=== PATIENT | female | born 1950 | race Caucasian/White ===

== ENCOUNTER 2023-10-02 11:22 | Inpatient (IN) | payer MEDICARE ==
[~2023-10-02] VITALS: Ht 175.3 cm; Wt 88.0 kg
[~2023-10-02 11:22] MED LIST: ADVAIR 500/28 DISKUS IH; NASONEX SPRAY NAS; PAXIL PO; TEGRETOL 2200 MG/TAB PO; VENTOLIN0.09 MG IH
[2023-10-02] MEDS ORDERED: Sennosides/Docusate 8.6-50 MG TAB PO PRN (15:45)
[2023-10-02] MEDS ORDERED: Polyethylene Glycol 3350 17 GM PDS PO PRN (15:45)
[2023-10-02] MEDS ORDERED: Docusate Sodium 100 MG CAP PO PRN (15:45)
[2023-10-02] MEDS ORDERED: Naloxone 0.4 MG/ML VIAL IV PRN (15:45)
[2023-10-02] MEDS ORDERED: Acetaminophen 325 MG TAB PO PRN (15:45)
[2023-10-02 15:55] VITALS: BP 127/79; PULSE 88; TEMP 98.1
[2023-10-02] MEDS ORDERED: TYLENOL 325MG325 MG PO (15:57)
[2023-10-02] MEDS ORDERED: DULCOLAX TAB5 MG PO (15:58)
[2023-10-02] MEDS ORDERED: [UNRECOGNIZED DRUG - OTHER] (15:59)
[2023-10-02] MEDS ORDERED: PEPCID 20MG TAB20 MG PO (16:00)
[2023-10-02] MEDS ORDERED: DEXAMETHASONE PO (16:00)
[2023-10-02] MEDS ORDERED: DESENEX TOP (16:01)
[2023-10-02] MEDS ORDERED: NICODERM C14 MG/PATC TD (16:02)
[2023-10-02] MEDS ORDERED: ZYPREXA ZYDIS5 MG PO (16:03)
[2023-10-02] MEDS ORDERED: ROXICODONE 55 MG/TAB PO (16:04)
[2023-10-02] MEDS ORDERED: ZOFRAN ODT4 MG PO (16:04)
[2023-10-02] MEDS ORDERED: MIRALAX PA17 GM/Dose PO (16:04)
[2023-10-02] MEDS ORDERED: ZESTRIL 20MG TA20 MG PO (16:05)
[2023-10-02] MEDS ORDERED: SENNA-S 50 MG-81 TAB PO (16:05)
[2023-10-02] MEDS ORDERED: TEGRETOL 2200 MG/TA1 PO (16:06)
[2023-10-02] MEDS ORDERED: PAXIL40 MG PO (16:07)
[2023-10-02] MEDS ORDERED: TOPROL XL 25MG25 MG PO (16:07)
[2023-10-02] MEDS ORDERED: oxyCODONE 5 MG TAB PO PRN (16:30)
[2023-10-02] MEDS ORDERED: OLANZapine 5 MG Orally-Disinteg TAB PO PRN (16:30)
[2023-10-02] MEDS ORDERED: Nicotine 14 MG DAILY PATCH TD PRN (16:45)
--- NOTE | 2023-10-02 17:15 | NUR ---
New patient arrived from [facility] via gurney & transportation staff member. Pt transferred to [facility] bed via slide board. Pt is AAO x 3 w/ mild expressive aphasia noted. She is s/p L. frontal & temporal craniectomy on 09/26. Pt has her cellphone & trash collector at the bedside. Bharti back placed in pt's closet at her request. Orientation provided to room & unit. Pt has her call light in reach. Bed alarm is on. Skin assessment: L scalp incision noted w/ CDI regulo. Pt has a single suture to top of head s/p drain removal. Coccyx is red w/ abraded skin. Coccyx redness is blanchable. Sacral dressing applied for pressure ulcer prophylaxis. 3-step incontinence supplies placed in room for future use. Per report, pt is continent of bowel & bladder. Waffle air overlay placed on bed & in recliner chair.
[2023-10-02 17:35] VITALS: BP 131/81; PULSE 84; TEMP 97.4
[2023-10-02 17:54] VITALS: BP_SYST 131
[2023-10-02 19:30] VITALS: BP_SYST 131
--- NOTE | 2023-10-02 19:30 | NUR ---
RECEIVED CHANGE OF SHIFT REPORT FROM DAY SHIFT NURSE. PATIENT RESTING IN BED, EXIT ALARM ON, CALL LIGHT IN REACH.
[2023-10-02] MEDS ORDERED: dexAMETHasone 1 MG TAB PO SCH (20:00)
[2023-10-02] MEDS ORDERED: Miconazole 2% Topical Powder BOTTLE TP SCH (21:00)
[2023-10-02] MEDS ORDERED: carBAMazepine 200 MG TAB PO SCH (21:00)
[2023-10-02] MEDS ORDERED: Sennosides/Docusate 8.6-50 MG TAB PO SCH (21:00)
[2023-10-02] MEDS ORDERED: Famotidine 20 MG TAB PO SCH (21:00)
--- NOTE | 2023-10-03 02:58 | NUR ---
PATIENT RESTING WITH EYES CLOSED, BREATHING EVEN AND NONLABORED. DOES NOT WAKE DURING NURSING ROUNDS. EXIT ALARM ON, CALL LIGHT IN REACH.
[2023-10-03 05:30] VITALS: BP 131/77; PULSE 83; TEMP 98.5
[2023-10-03 06:30] VITALS: BP_SYST 131
--- NOTE | 2023-10-03 07:09 | NUR ---
Change of shift report given to day shift nurseFridea.
[2023-10-03] MEDS ORDERED: Lisinopril 20 MG TAB PO SCH (09:00)
[2023-10-03] MEDS ORDERED: PARoxetine HCL 10 MG TABLET PO SCH (09:00)
--- NOTE | 2023-10-03 09:20 | NUR ---
PT RESTING IN BED WITH NO PAIN AT THIS TIME, A/O X4, SUTURE TO L SCALP WITH EDGES WELL APPROX AND NO SIGNS OF INFECTION. PT AMBULATED TO [facility] 2 ASSIST WITH WALKER AND UNSTEADY GAIT AND WEAKNESS. PT BECAME NAUSEOUS AND MEDICATION PROVIDED PER EMAR. MEPOLEX ON STAGE 1 SORE ON COCCYX. WILL CONTINUE TO MONTIOR.
--- NOTE | 2023-10-03 14:13 | NUR ---
Has lack of transportation kept you from medical appts, meetings, work, or from getting things needed for daily living? no How often do you feel lonely or isolated from those around you? rarely Over the past 5 days, how much of the time has pain made it hard for you to sleep? frequently Over the past 5 days, how often have you limited your participation in therapy due to pain? no therapy Over the past 5 days, how often have you limited your day-to-day activities because of pain? frequently Have you had 2 or more falls in the past year or any fall with an injury? yes Did you have major surgery during the 100 days prior to admission? yes
--- NOTE | 2023-10-03 16:56 | NUR ---
TERESE and SW student met with patient to welcome her to the IPR unit and complete an assessment. Patient reports she lives in [place] by herself. Patient reports she has two children, Florin and Daphne. Patient reports her best point of contact would be Iraida, her granddaughter, and that Paola (whom is listed on the chart) is also her daughter. Patient was unable to provide accurate phone numbers for any family members. Patient reports she was seeing Dr. Sullivan but believes she sees Dr. Love now. Pharmacy is [facility]. No issues affording medications. Patient does not know if she has a DPOA-HC. Patient reports she has a wheelchair but it is an older version, also has a shower chair and walker. Patient reports she was previously independent with ADLS and has a friend to transport to and from appointments. Patient reports she has no stairs at her home. Patient reports she is going to go home at time of discharge and has home health services in her area that she has worked with in the past. SW expressed the team will continue to evaluate and work with her and the social media community manager will work with her on a safe discharge plan. Patient reports she knows she will return home at time of discharge. TERESE will continue to monitor. TERESE received contact information for Florin P# [phone], Daphne P# [phone], Iraida P# [phone] Discharge plan: TBD
[2023-10-03 18:22] VITALS: BP 107/73; PULSE 87; TEMP 97.6
[2023-10-03 19:00] VITALS: BP_SYST 107
--- NOTE | 2023-10-03 20:00 | NUR ---
PT RESTING IN BED. A&O X4. FORGETFUL AT TIMES. MILD EXPRESSIVE APHASIA. VERY PLEASANT AND COOPERATIVE. PT ADMITS TO MILD H/A. DENIES NEEDS FOR TYLENOL. PT INCONTINENT IN BED. PLACED PUREWICK FOR THE NIGHT. REPOSITIONED. TAKES PILLS WHOLE WITH THICKENED SPRITE. NO SWALLOWING DIFFICULTIES. CALL LIGHT IN REACH. BED ALARM SET.
--- NOTE | 2023-10-04 04:47 | NUR ---
PT HAS SLEPT WELL THIS NIGHT. NO DISTRESS.
[2023-10-04 06:00] VITALS: BP 146/78; PULSE 79; TEMP 97.5
[2023-10-04 07:01] VITALS: BP_SYST 146
--- NOTE | 2023-10-04 07:02 | NUR ---
Shift report received from night RN. Pt sleeping supine in bed w/ HOB slightly elevated. No events reported overnight. Call light in reach. Bed alarm on.
--- NOTE | 2023-10-04 07:26 | NUR ---
Pt sleeping in bed. Aroused easily from sleep. Pt assisted to sitting position in bed to eat breakfast. She reports sleeping wel overnight. Denies pain at this time. L Scalp incision CDI & SECURITIES CONSULTANT. Suture to scalp CDI & SECURITIES CONSULTANT. Pt denies other needs at this time. Eating breakfast independently. Call light in reach. Bed alarm on.
--- NOTE | 2023-10-04 11:20 | NUR ---
Pt up to toilet w/ PT & OT. Pt tearful & not wanting to participate w/ therapies this morning. Pt reporting pain & nausea. Zofran given per PRN order. Oxycodone pulled from Pyxis - pt declined. Tylenol pulled from Pyxis - pt declined. OT & PT at the bedside to continue to attempt to work w/ pt. Radiology notified of hip XR order.
--- NOTE | 2023-10-04 12:51 | NUR ---
Pt sitting up in recliner eating lunch independently. Son & [id number] at the bedside. Pt denies pain/discomfort. Denies any needs. Call light in reach. Chair alarm on.
--- NOTE | 2023-10-04 13:28 | NUR ---
Pt up to ambulate from bed to bathroom using CGA w/ FWW. Pt had a continent void. Pt back in bed to wait for OT. Pt denies any needs at this time. Call light in reach. Bed alarm on.
--- NOTE | 2023-10-04 16:34 | NUR ---
material worker met with patient to briefly check in on how therapy has been going. Patient stated therapy has been a lot for her and is worried about being able to continue the three hours. SW provided Medicare.gov list of SNF options. Patient reports at this time she wants to continue IPR services. Mayela IPR director and Dr. Huston have been notified. Discharge date: TBD - re-evaluate next week Discharge plan: TBD
[2023-10-04 17:55] VITALS: BP 123/76; PULSE 86; TEMP 97.6
--- NOTE | 2023-10-04 18:55 | NUR ---
Pt sitting up in bed watching tv after eating dinner independently. Scalp sutures SUPPLY AND DISTRIBUTION MANAGER & CDI. Pt denies the need for pain medication at this time. Call light in her reach. Bed alarm is on.
[2023-10-04 19:30] VITALS: BP_SYST 123
--- NOTE | 2023-10-04 20:46 | NUR ---
Patient assessed at this time, see shift assessment, denies pain or discomfort, refused desenex powder and venelex ointment, states "will do that in the morning", incontinence of urine at this time, pad changed, pericare provided, sutures intact to left lateral head, denies further needs, call light and personal items within reach, will continue to monitor.
[2023-10-05 06:12] VITALS: BP 140/77; PULSE 86; TEMP 98
[2023-10-05 07:05] VITALS: BP_SYST 140
--- NOTE | 2023-10-05 09:09 | NUR ---
PT RESTING IN BED WITH NO PAIN AT THIS TIME. PT A/OX4, TOLERATED BREAKFAST WELL. PT EDUCATED ON IMPORTANCE OF GETTING UP TO THE BATHROOM. PT CONTINUES TO WET THE BED ALTHOUGH CONTINENT. SCDS APPLIED. NO NEEDS AT THIS TIME. WILL CONTINUE TO MONTIOR.
[2023-10-05 17:34] VITALS: BP 134/87; PULSE 95; TEMP 98.1
[2023-10-05 19:00] VITALS: BP_SYST 134
[2023-10-06 05:59] VITALS: BP 116/63; PULSE 79; TEMP 97.4
[2023-10-06 06:56] VITALS: BP_SYST 116
--- NOTE | 2023-10-06 09:00 | NUR ---
PT RESTING IN BED WTIH NO PAIN 2/10 AT THIS TIME. PT A/O X4, 1 ASISST TO COMMOD WITH WALKER. PT NOTES ANXIETY AND HAS QUESTIONS FOR DR REGARDING FUTURE CARE. PT EMOTIONAL AND EXPRESSING THAT SHE "DOES NOT WANT TO BE PUSHED TO WALK OR DO THESE EXERCISES ANYMORE". DR ORDOÑEZ NOTIFIED. WILL CONTINUE TO [facility].
--- NOTE | 2023-10-06 16:14 | NUR ---
grove worker was informed by Dr. Abdullahi Andrews that patient would like to discuss her options as patient is not tolerating the intensive therapies. SW and Dr. Andrews spoke with patient who reports it is too much. Pt states she would like to return home and has two neighbors who can check on her or live with her whe clarified. She reports she cannot do the "excessive exercise." SW provided the Medicare.gov list of SNF options in her area. She would like to discuss wiht family tomorrow and inform SW. She inquired about Home Health and reports patient would not be safe to return home with HH if she does not have 24/7 care from someone. Pt verbalized understanding and will discuss her wishes with her family. HELIO Malave informed SW that patient is upset her family is not here to discuss today. Frieda spoke with the family and advised they will arrive today to discuss. TERESE informed RN that patient's son lives in [facility] and daughter in [place] typically. Discharge Plan: tbd
[2023-10-06 17:28] VITALS: BP 140/81; PULSE 90; TEMP 97.7
--- NOTE | 2023-10-06 17:29 | NUR ---
TOOK OVER PATIENT CARE, NO CHANGES FROM PREVIOUS ASSESSMENT. RFECIEVED REPORT FROM KIMBERLY Schaefer RN.
[2023-10-06 19:00] VITALS: BP_SYST 140
--- NOTE | 2023-10-06 20:07 | NUR ---
RECEIVED CHANGE OF SHIFT REPORT FROM DAY SHIFT NURSE. PATIENT RESTING IN BED, EXIT ALARM ON, CALL LIGHT IN REACH.
--- NOTE | 2023-10-06 20:13 | NUR ---
REQUESTED AND GIVEN TYLENOL FOR GENERALIZED DISCOMFORT/BODY ACHES AT THIS TIME. NO OTHER NEEDS REPORTED.
[2023-10-07 05:15] VITALS: BP 162/87; PULSE 80; TEMP 97.5
--- NOTE | 2023-10-07 06:50 | NUR ---
CHANGE OF SHIFT REPORT GIVEN TO DAY SHIFT NURSEJOSE.
--- NOTE | 2023-10-07 06:50 | NUR ---
CHANGE OF SHIFT REPORT GIVEN TO DAY SHIFT NURSEJOSE.
[2023-10-07 06:58] VITALS: BP_SYST 162
--- NOTE | 2023-10-07 06:58 | NUR ---
Shift report received from night RN. Pt sleeing supine in bed. Resps even, unlabored. No events reported overnight. Call light in reach. Bed alarm on.
--- NOTE | 2023-10-07 09:03 | NUR ---
Pt stting up in bed watching tv. Pt denies pain/discomfort this morning. Denies any needs. Therapies remain on Medical Hold per hospitalist. Pt has her call light in reach. Bed alarm is on.
--- NOTE | 2023-10-07 10:51 | NUR ---
Pt off unit w/ PT. Zofran given for nausea
--- NOTE | 2023-10-07 11:05 | NUR ---
Voicemail left with Cotton Marcelo Neurosurg RN re: scalp suture removal. Callback received. May remove sutures on Saturday. Dr. Huston aware.
--- NOTE | 2023-10-07 13:09 | NUR ---
Pt off unit w/ PT
--- NOTE | 2023-10-07 13:12 | NUR ---
Social Work student Kayla sent SNF referral to [facility].
--- NOTE | 2023-10-07 14:57 | NUR ---
Pt sitting up in bed watching tv. She denies the need for pain medication at this time. Denies nausea or abd pain. Sacral dressing changed. Skin beneath dressing was previously red, blanchable, abraded. Wounds healing. Skin is no longer reddened. Pt denies any other needs at this time. Call light in her reach. Bed alarm on.
--- NOTE | 2023-10-07 15:07 | NUR ---
child welfare worker spoke with IPR Director Mayela who requests a family meeting tomorrow to discuss patient's discharge needs. SW called granddaughter, Iraida who reports she would be unable to attend at 9:30am due to working. She provided her father, Florin' [phone] to discuss as she stated they chose [facility]. TERESE called Florin who expressed some hesitancy about meeting as "we already discussed" he states. SW added that this would be with the whole rehab team, director, , and SW. Florin was agreeable to coming in person at 9:30am. SW informed IPR Director Mayela and passed on knowledge of patient wanting [facility] per family. Discharge Plan: tbd, family meeting 9:30am 10/08
--- NOTE | 2023-10-07 15:37 | NUR ---
Admission QIM scores were reviewed by the team. Code of 1 chosen for toileting hygiene was determined by team discussion to be the most usual performance for this patient during the discharge assessment period. Code of 2 chosen for rolling left to right was determined by team discussion to be the most usual performance before interventions for this patient during the assessment period. Code of 2 chosen for sit to lying was determined by team discussion to be the most usual performance before interventions for this patient during the assessment period. Code of 2 chosen for lying to sitting side of bed was determined by team discussion to be the most usual performance before interventions for this patient during the assessment period. Code of 2 chosen for sit to stand was determined by team discussion to be the most usual performance for this patient during the discharge assessment period. Code of 2 chosen for chair/bed to chair transfer was determined by team discussion to be the most usual performance before interventions for this patient during the assessment period. Code of 1 chosen for walking 10 feet was determined by team discussion to be the most usual performance for this patient during the discharge assessment period.--Mayela Payton, PD
[2023-10-07 16:50] VITALS: BP 125/66; PULSE 91; TEMP 97.8
--- NOTE | 2023-10-07 17:40 | NUR ---
Pt sitting up in bed watching tv after eating approx 70% of dinner independently. Pt denies pain/discomfort. Denies any needs. Call light in her reach. Bed alarm is on.
--- NOTE | 2023-10-07 18:26 | NUR ---
Pt up to the bathroom x 1 assist for pivot transfer to wheelchair then toilet. Pt back in bed after toileting. Pt tearful stating "why won't my legs work?" Encouraged pt to continue w/ PT/OT for strengthening. Pt reporting bilat hip pain but is refusing Tylenol or Oxycodone when offered. Will continue to monitor & pass on to oncoming RN. Pt has her call light in reach. Bed alarm is on.
[2023-10-07 19:16] VITALS: BP_SYST 125
--- NOTE | 2023-10-07 19:16 | NUR ---
RECEIVED CHANGE OF SHIFT REPORT FROM DAY SHIFT NURSE. PATIENT RESTING IN BED, CALL LIGHT IN REACH. NO NEEDS REPORTED AT THIS TIME.
--- NOTE | 2023-10-07 20:11 | NUR ---
REQUESTED AND GIVEN TYLENOL, SEE MAR. REFUSED SCD FOR THE NIGHT, REPORTS SCD ARE TOLERATEABLE DURING THE DAY. EXIT ALARM ON, CALL LIGHT IN REACH.
--- NOTE | 2023-10-08 02:30 | NUR ---
PATIENT RESTING IN BED, EYES CLOSED, BREATHING EVEN AND NONLABORED. EXIT ALARM ON, CALL LIGHT IN REACH. PATIENT DID NOT WAKE DURING NURSING ROUNDS.
[2023-10-08 05:03] VITALS: BP 147/72; PULSE 77; TEMP 97.4
--- NOTE | 2023-10-08 06:48 | NUR ---
Change of shift report given to day shift nurseFrieda.
[2023-10-08 07:04] VITALS: BP_SYST 147
--- NOTE | 2023-10-08 09:05 | NUR ---
PT RESTING IN BED WITH NO PAIN AT THIS TIME. PT A/OX4, MEPLOEX TO COCCYX CLEAN, DRY, AND INTACT. FAMILY AT BEDSIDE. WILL CONTINUE TO MONITOR.
--- NOTE | 2023-10-08 14:17 | NUR ---
track worker recieved an email from Margy Phillips at [facility] who reports they decline patient. She reports concerns if patient is declining therapy in [facility] for 3 hours and then do 2-3 hours per day in Swing Bed program. Discharge Plan: SNF
--- NOTE | 2023-10-08 15:04 | NUR ---
line out worker attended family meeting for patient with rehab team. Dr. Huston, IPR Director, and son, Florin at bedside. The team expressed patient's medical status, prognosis, and suggestions for a lower level of rehab and cares due to increased pain/nausea with intense movements. SW provided further information on a SNF and how this could meet her needs. Florin and pt were agreeable to a SNF, as long as it is not [facility] in [place]. Florin reports he will speak with [facility] to obtain the results that will help them deicde on chemo vs radiation as treatments. Dr. Huston discussed the possibilty of pt getting injections in her hips to help alleviate some pain. Pt was open to exploring this option. TERESE spoke with Christiano at [facility] to provide information obtained from the family meeting. Christiano reports they will decline patient due to being unable to meet her needs and being a small facility. TERESE spoke with son, Florin and informed him of the denial. He reports he is fine with any other facility as long as it is not [facility]. He states [facility] in [place] and [facility] would be his next options from the Medicare.gov list. He had concerns regarding finding pt placement and states that if he has to take her back to [place] if he has to to avoid [facility]. TERESE reassured son that they can obtain a placment, but it can be more difficult in the smaller towns who cannot meet her needs. TERESE faxed referrals to [facility], [facility], and [facility]. TERESE recieved an email from [facility] reporting that they cannot accept pt due to them being a Swing Bed program and they provide 2-3 hours a day of therapy as well and if pt can already not tolerate IPR, they have concerns. TERESE left a voicemail to [facility] to ensure they recieved the referral. [facility] reports they have recieved it. Discharge Plan: SNF tbd
--- NOTE | 2023-10-08 15:42 | NUR ---
sand control worker recieved a call from TERESE Mane at [facility] wanting to inquire about patient's needs and agressive vs hospice decisions. TERESE advised pt and son would like to continue to be agressive, but pt needs rehab to be stronger before that can occur. TERESE advised pt would like to return home eventually, but at this time, the team feels as though the pt needs more rehab before doing so and IPR is too intense for her. She advised that [facility] is short on female beds and are trying to assess the complexity of pt and concerns regarding Medicare being the only payor source. TERESE advised that pt is pleasant and wants to continue to fight and she has suportive family. Alhaji requests updates during the week and will continue to review with staff.
[2023-10-08 18:02] VITALS: BP 120/72; PULSE 90; TEMP 98.1
[2023-10-08 19:12] VITALS: BP_SYST 120
--- NOTE | 2023-10-08 19:12 | NUR ---
RECEIVED CHANGE OF SHIFT REPORT FROM DAY SHIFT NURSE, EXIT ALARM ON, CALL LIGHT IN REACH. PATIENT STATING SHE WANTED HER PILLS GIVEN EARLIER TONIGHT.
--- NOTE | 2023-10-08 20:14 | NUR ---
TOOK ONLY 325 OF TYLENOL, REFUSED ADDITIONAL 325 MG TABLET. PATIENT REFUSED STOOL SOFTENER STATING THAT IT IS MAKING HER CONSTIPATION "WORSE" AND REFUSED FAMOTADINE.
[2023-10-09 06:03] VITALS: BP 125/71; PULSE 79; TEMP 97.5
--- NOTE | 2023-10-09 06:50 | NUR ---
awake resting in bed, bedside shift report received from HELIO Ulloa
--- NOTE | 2023-10-09 06:53 | NUR ---
Change of shift report given to day shift nurseZoe. Patient resting in bed, exit alarm on, call light in reach.
[2023-10-09 06:54] VITALS: BP_SYST 127
--- NOTE | 2023-10-09 07:40 | NUR ---
sitting up in bed and had breakfast and tolerated well, full assessment completed, see intervention for further info,
--- NOTE | 2023-10-09 08:35 | NUR ---
speech therapy in to work with patient
--- NOTE | 2023-10-09 10:30 | NUR ---
returned from radiology per without having injections, was not able to have them since she has an allergy to lidocaine and she didn't want the injections without that, occupational therapy and physical therapy in to work with patient
[2023-10-09 11:09] LABS: BASO # 0.1 K/mm3 (0.0-0.2); BASO % 0.5 % (0.0-2.0); EOS # 0.1 K/mm3 (0.0-0.7); EOS % 0.9 % (0.0-4.0); GRAN # 7.1 K/mm3 (1.4-6.5); GRAN % 70.4 % (42.2-75.2); HEMOGLOBIN 10.9 g/dl (12.5-16.0); LYMPH # 1.9 K/mm3 (1.2-3.4); LYMPH % 18.6 % (20.0-51.0); MEAN CELL VOLUME 101 fl (80.0-100.0); MEAN CORPUSCULAR HEMOGLOBIN 34 pg (27-31); MEAN CORPUSCULAR HGB CONC 34 g/dl (33.0-37.0); MEAN PLATELET VOLUME 11.7 fl (7.4-10.4); MONO # 0.9 K/mm3 (0.1-0.6); PLATELET COUNT 251 K/mm3 (130-400); RED BLOOD COUNT 3.22 M/mm3 (4.10-5.30)
[2023-10-09 11:14] LABS: HEMATOCRIT 32.4 % (37.0-47.0)
--- NOTE | 2023-10-09 11:16 | NUR ---
occupational therapy in working with patient, patient is c/o paina nd medicated with tylenol 325mg, offeed 2 t ylenol but she declines 2 and only rquest 1
[2023-10-09 11:25] LABS: CALCIUM 10.2 mg/dL (8.4-10.2); CREATININE, serum 0.67 mg/dL (0.57-1.11); POTASSIUM 4.3 mmol/L (3.5-4.5)
--- NOTE | 2023-10-09 12:00 | NUR ---
up in chair having lunch
--- NOTE | 2023-10-09 13:17 | NUR ---
physical therapy in to work with patient
--- NOTE | 2023-10-09 13:49 | NUR ---
awake resting in bed with eyes closed
--- NOTE | 2023-10-09 16:23 | NUR ---
workers compensation defense attorney attended team conference regarding pt with rehab team, IPR Director, Dr. Huston, and Supervisor Wound. Pt will be transferring to a SNF at this time for a lower level of care. Patient is noted to have a wheelchair already from family meeting. TERESE met with pt and provided team conference notes and briefly explained them. Pt verbalized understanding and expressed frustrations that she wants to speak with her grand-daughter, Iraida. TERESE assisted her with calling Iraida. TERESE spoke with Iraida and discussed SNF decision and locations. TERESE provided she sent to [facility] and [facility] and they denied pt. She was agreeable to [facility], [facility], and [facility]. She expressed she would like to stay in the [facility] area. SW inquired about a DPOA-HC and she states she is looking for it in pt's old house, but she does not believe pt has one. She confirms with TERESE that NOK is Florin and [facility]. She states that D[facility] is not reponsive and does not answer calls from them either. TERESE discussed questions she was getting from [facility] regarding potential for LTC and payor source. TERESE discussed a Medicaid application in the event pt stays longer than 21 days. Iraida confirms they cannot afford to private pay any amount for SNF or LTC. TERESE suggested a Medicaid application to assist. Iraida verbalized understanding and asked TERESE to call Florin. TERESE called Florin and relayed the above information. He had many questions regarding prognosis, length of stay, and discharge planning. TERESE advised she cannot state how long or what pt's discharge plan at the end will look like; but she will need to start with SNF to see if she can get stronger or near baseline because returning home is not safe at this time. TERESE discussed the Medicaid application and son reports he would like to make some phone calls. He confirms they cannot afford to private pay any amount and neither can pt. Florin states he was getting a call from his sister and will get back to TERESE on this. He expressed frustrations regarding payor source. TERESE spoke with TERESE Mane at [facility] whom declines pt at this time for being unable to meet her needs. TERESE faxed a referral to [facility] and called to leave TERESE rachel for follow up. TERESE left a voicemail and faxed updates to [facility]. Discharge Plan: SNF tbd
--- NOTE | 2023-10-09 17:22 | NUR ---
ressting in bed, has had supper
[2023-10-09 17:32] VITALS: BP 142/82; PULSE 92; TEMP 97.7
--- NOTE | 2023-10-09 18:53 | NUR ---
bedside shift report given to HELIO Monique
[2023-10-09 19:00] VITALS: BP_SYST 142
--- NOTE | 2023-10-09 19:00 | NUR ---
Bedside shift report received from HELIO Enriquez. Patient sitting in bed with no c/o at this time.
--- NOTE | 2023-10-09 20:00 | NUR ---
Patient hollering out to desk-this nurse to room at this time. When asked if patient needed something states "well yes, I have been waiting to go to bathroom for three hours." This nurse and dayshift nurse did bedside report at 1900 and patient denied needs. Assisted up to commode with two assist at this time. Patient already incontinent of urine. Alba care provided. Assessment commplete. A&Ox4 but is very forgetful. HS meds given. Plan of care discussed for this shift to include meds/calling for questions/concerns. Verbalizes understanding. Call light in reach. Will monitor.
--- NOTE | 2023-10-10 00:56 | NUR ---
Patient sitting up in bed. Has called out several times this shift asking for schedule for AM and if any meetings are planned. Called out stating "something is not right with me, my memory isnt right." VS taken and WNL. Patient states "I just feel off and confused." Updated on AM plan for therapy. Verbalizes understanding. Denies any other questions/concerns. Call light in reach. Will monitor.
[2023-10-10 05:32] VITALS: BP 139/80; PULSE 84; TEMP 97.3
--- NOTE | 2023-10-10 05:43 | NUR ---
Patient was up most of shift. Yelled out for staff several times. Seemed very anxious and was worried about todays plans. Seemed confused off and on. Denied pain/nausea/shortness of breath. VS remained stable. Currently resting in bed with eyes closed. Call light in reach. Will monitor.
[2023-10-10 07:07] VITALS: BP_SYST 139
--- NOTE | 2023-10-10 07:08 | NUR ---
Shift report received from night RN. Pt awake & lying supine in bed w/ HOB elevated to approx 30 degrees. Per shift report & pt report, pt did not sleep well overnight. Pt would like to discuss her XR result w/ Dr. Huston this morning. Will pass on to upon arrival. Pt denies pain at this time but reports having increased L hip pain overnight. Denies the need for pain medication. Call light in reach. Fall precautions in place.
--- NOTE | 2023-10-10 07:48 | NUR ---
Pt sitting up in bed eating breakfast independently. Pt refusing several medications this mornin. Pt agreeable to taking Paxil 20mg now instead of rx of 40mg. She is reporting night time anxiety & would like to take to the remaining 20mg at HS. 2. Lisinopril 20 mg refused at this time - pt would like to space out BP meds (take Metoprolol & Lisinopril QAM). 3. Pepcid 20mg refused 4. Senna refused. Will discuss w/ Dr. Huston upon arrival. Pt denies other needs. Call light in reach. Fall precautions in place.
--- NOTE | 2023-10-10 09:11 | NUR ---
Pt up to toilet. Reporting nausea. Nicolean offered & declined. Pt given Sprite.
--- NOTE | 2023-10-10 10:23 | NUR ---
Pt reporting pain "all over". Pt agreeable to taking Tylenol 325 mg - 1 tab given. Sutures removed by Dr. Huston. Incision well approximated w/o redness, drainage. Pt off unit for Group Therapy.
--- NOTE | 2023-10-10 10:52 | NUR ---
Pt back in room from Group Therapy. Pt c/o pain & nausea. Pt declines any more Tylenol & delcines Zofran. Pt assisted to bed. HOB elevated to 45 degrees. Cranberry juice given at her request. Other needs denied. Call light in reach. Fall precautions in place.
--- NOTE | 2023-10-10 13:08 | NUR ---
Pt sleeping supine in bed. HOB elevated to approx 45 degrees. Resps are even & unlabored. Call light in reach. Fall precautions in place.
--- NOTE | 2023-10-10 15:58 | NUR ---
reinforced ironworker called pt's son, Florin to follow up on if he was willing to work with financial advisors to complete the Medicaid application. Florin reports he was headed to the bank today to assess financials and see if he can get documents from the bank. He reports, "There is no way we can afford it. I spoke to [place] and they are $5,000 a month." TERESE advised that [facility] declined patient so this would not be an option. TERESE stated she spoke with G[facility] Jeffery and they are reviewing, but questioned payor source after day 21 of medicare paying. He then became agreeable to meeting with personal financial planner tomorrow at 2pm. SW discussed options if the main and nearby facilities did not accept. He reports, "I only want as far as [place]- not [place] or further." TERESE discussed that if there are not local acccepting facilities, the next step is to send referrals out further. He did not reply to this statement. TERESE advised she will call financial and inform them to meet with him and pt tomorrow. TERESE asked if she could send to local facilities in the [place] area: [facility] and [facility]. Florin was agreeable to this. TERESE emailed referrals to [facility], [facility], and [facility]. TERESE spoke with Paola, Circulation Supervisor to complete Medicaid application. She later spoke with pt's son who wanted to complete it today around 2pm as he found him or his daughter, Iraida was not on pt's bank to release documents. Paola advised son will need a notary to assist with getting permission written from pt. TERESE provided hospital notary information to Paola. TERESE recieved a call from HELIO Houser that sonFlorin is in the building. TERESE called Florin who requested SW come to the room to discuss planning. TERESE met with pt, son, and grand-daughter Iraida in room. TERESE provided an update that facilities are requesting a secondary payor source: Medicaid. He was agreeable to doing this and pt verbalized understanding what it was needed for. TERESE inquired about if pt would be open to completing a DPOA-HC. All parties agreed to this. TERESE completed this with pt who listed Iraida as primary and Florin as secondary. Circulation Supervisor Paola and TERESE witness signatures, provided copies/originals, and placed copy in chart. TERESE stated that [facility] provided they wanted a DPOA-HC and [facility] was still reviewing. Gerson Jeffery and Jered report their staff is still reviewing too. TERESE advised the Circulation Supervisor is able to work with them on the Medicaid application. No further questions or concerns for TERESE. TERESE called [facility] who states their DON is out and other team members are reviewing. Gerson Jeffery informs SW they are still reviewing. Jenae states that clinically they can meet pt's needs, but their finance team is still reviewing her insurance and being Medicaid pending. TERESE spoke with Elgin at [facility] who requests a DPOA-HC. TERESE advised this was now completed and emailed to him. He reports he will have to ask about Medicaid pending, but clinically they can meet needs. Patient is now Medicaid pending. Discharge Plan: SNF tbd
[2023-10-10 16:09] LABS: COLLECTION METHOD CLEAN CATCH
[2023-10-10 16:18] LABS: PH 5.5 (5.0-8.5); URINE APPEARANCE CLEAR (CLEAR/HAZY); URINE BLOOD NEGATIVE (NEGATIVE); URINE COLOR Dark Yellow (YELLOW); URINE GLUCOSE NEGATIVE (NEGATIVE); URINE KETONE NEGATIVE (NEGATIVE); URINE NITRATE NEGATIVE (NEGATIVE); URINE PROTEIN(semi-quant) NEGATIVE (NEGATIVE)
[2023-10-10 17:17] VITALS: BP 107/77; PULSE 82; TEMP 97.8
--- NOTE | 2023-10-10 17:35 | NUR ---
Pt sitting up in bed eating dinner w/ son & granddaughter. Scalp incision remains well approximated. No drainage or redness. Pt denies pain/discomfort at this time. Other needs denied. Call light in reach. Bed alarm on.
--- NOTE | 2023-10-10 20:00 | NUR ---
PT NEEDING UP TO BSC. HAD MED SF BM. PT CONFUSED AT THIS TIME. PT WANTS BACK INTO BED THEN SHE REFUSES. "I DON'T KNOW WHAT GOING ON." PT ANXIOUS AND WON'T FOLLOW DIRECTIONS. 2:1 ASSIST TO STAND. PT WONT UNCROSS FEET. THEN HOLLERS I NEED TO SIT. BUT THEN SHE ASK IF WE WILL HELP HER GET INTO BED. PT ASSISTED TO BED. ALL SETTLED, THE BECOMES FRANTIC AGAIN i NEED UP. I HAVE TO POOP. PT TRYING TO GET UP BYHERSELF. ENC PT TO WAIT UNTILL BSC AND STAFF DONNED GLOVES. PT HOLLERING I HAVE TO GO. 2:1 MAX ASSIST TO BSC. PT HAD XLG SL LOOSE BM. PT AGAIN WANTS BACK INTO BED THEN REFUSES TO ASSIST STAFF TO A STANDING POSITION. PT KEEPS LEGS CROSSED. PT SAID i CAN'T. VERY UNCOOPERATIVE. FINALLY WAS ABLE TO GET PT BACK INTO BED. SEE MAR FOR ZYPREXA GIVEN. PT TOOK ALL SCHEDULED MEDS TONIGHT. CALL LIGHT IN REACH. BED ALARM SET.
[2023-10-11 06:07] VITALS: BP 100/66; PULSE 84; TEMP 98
[2023-10-11 07:00] VITALS: BP_SYST 100
[2023-10-11 18:09] VITALS: BP 119/71; PULSE 93; TEMP 97.6
[2023-10-11 19:00] VITALS: BP_SYST 119
--- NOTE | 2023-10-11 19:43 | NUR ---
RECIEVED REPORT FROM HELIO LABOY.
--- NOTE | 2023-10-11 20:18 | NUR ---
PT ALERT AND ORIENTED TO SELF AND PLACE. FORGETFUL WITH HALLUCINATIONS, ASKED WHY SHE WASNT IN HER BED, WHILE LAYING IN BED. PAIN RATED 4/10, MEDICATED PER EMAR. ASSESSED VSS. NO FURTHER NEEDS AT THIS TIME. BED ALARM SET,CALL LIGHT WITHIN REACH.
[2023-10-12 05:48] VITALS: BP 128/82; PULSE 100; TEMP 98.1
[2023-10-12 07:02] VITALS: BP_SYST 128
--- NOTE | 2023-10-12 07:03 | NUR ---
Shift report received from night RN. No events reported overnight. Pt sleeping supine in bed w/ even & unlabored. Scalp incision [employer] & well approximated. Call light in reach. Fall precautions in place.
--- NOTE | 2023-10-12 09:19 | NUR ---
Pt sitting up in bed after eating breakfast. Group Therapy declined. Pt denies any needs at this time. Call light in reach. Bed alarm on.
--- NOTE | 2023-10-12 12:17 | NUR ---
Pt sitting up in bed after eating lunch independently. Pt ate approx 10% of her lunch. She states she isn't feeling hungry right now & may eat the rest of her tray later. Pain/discomfort denied. Other needs denied. Scalp incision remains CDI. Call light in reach. Fall precautions in place.
[2023-10-12 17:05] VITALS: BP 145/73; PULSE 87; TEMP 98
--- NOTE | 2023-10-12 17:48 | NUR ---
Son (DPOA) & grand daughter here to visit pt. KATHARINE requesting that nursing give her daughter, Daphne, minimum information when she calls for updates on her mom. DPOA stated that Daphne calls & "upsets mom". Will pass on to oncoming shift.
[2023-10-12 18:30] VITALS: BP_SYST 145
--- NOTE | 2023-10-12 19:27 | NUR ---
PT CONFUSED. WANTS THE [place] [facility] [employer]. PT KNOW MONTH AND YEAR. DOESN'T KMOW SHE IS IN THE HOSPITAL OR WHAT TOWN.
--- NOTE | 2023-10-12 20:30 | NUR ---
PT URGENTLY STARTED GETTING UP. NEEDED BM. PT HAVING DIFFICULTY FOLLOWING DIRECTION FOR SAFETY. 2:1 PIVOT TRANSFER. KEEPS FEET CROSSED. WOULD NOT USE WALKER. PT GETTING ARGUMENTATIVE. PT HAD LARGE LOOSE MORALES BROWN BM. PT C/O LT HIP PAIN. SEE MAR FOR ZYPREXA AND TYLENOL. MAX 2:1 TRNASFER BACK TO BED. CALL LIGHT IN REACH. BED ALARM SET.
[2023-10-13 05:18] VITALS: BP 140/62; PULSE 70; TEMP 97.5
--- NOTE | 2023-10-13 05:25 | NUR ---
PT AWAKE THIS AM. MORE ORIENTED. NO NEEDS AT THIS TIME.
[2023-10-13 07:12] VITALS: BP_SYST 140
--- NOTE | 2023-10-13 07:14 | NUR ---
Shift report received from night RN. No events reported overnight. Pt sleeping supine in bed w/ even & unlabored resps. Call light in reach. Bed alarm on.
--- NOTE | 2023-10-13 08:06 | NUR ---
Pt sitting up in bed after eating breakfast. Pt ate approx 40% of breakfast independently. Pt reporting that her L hip & knee are "hurting really bad" since yesterday evening. Pt declining offered pain medication at this time. Warm blanket given. Pt refusing scheduled famotidine stating "it's too many pills in the morning". Other needs denied. Call light in reach. Fall precautions in place.
--- NOTE | 2023-10-13 09:42 | NUR ---
Pt sleeping supine in bed. HOB elevated to approx 30 degrees. Resps even & unlabored. Call light in reach. Bed alarm on.
--- NOTE | 2023-10-13 10:28 | NUR ---
Pt up to BSC then back to bed. Pt declined sitting in wheelchair or recliner. Pt denies the need for pain medication at this time. Denies other needs. Call light in reach. Bed alarm on.
--- NOTE | 2023-10-13 15:35 | NUR ---
Pt sitting up in bed watching tv. Denies any needs at this time. Call light in reach. Bed alarm on.
[2023-10-13 17:06] VITALS: BP 122/77; PULSE 92; TEMP 97.7
--- NOTE | 2023-10-13 17:38 | NUR ---
Pt sitting up bed watching tv. Dinner tray declined except for ice cream. Tylenol given by rn charge for incisional pain at pt's request. Other needs denied. Call light in reach. Bed alarm on.
[2023-10-13 19:00] VITALS: BP_SYST 122
--- NOTE | 2023-10-13 20:30 | NUR ---
UPON SHIFT ASSESSMENT, IVET WAS AWAKE IN BED AND AXO X4. SHE IS CHEERFUL AND NEUROS ARE WNL. LT FRONTAL AND TEMPORAL INSICION IS OPEN TO AIR AND WOUND EDGES APPROXIMATE-NO EDEMA, NO DRAINAGE. SHE DENIES ANY PAIN OR SOA AT THIS TIME AND STATES NO NEEDS. CALL LIGHT WITHIN REACH, BED ALARM ON.
[2023-10-14 05:35] VITALS: BP 140/83; PULSE 87; TEMP 97.3
--- NOTE | 2023-10-14 06:15 | NUR ---
THROUGHOUT THE NIGHT, LESVIA HAD THREE WET BED CHANGES AND MEPIPLEX WAS PLACED ON SACRUM D/T DISCOLORATION-BLANCHABLE. NEUROS ARE WNL AND SHE WAS ABLE TO SLEEP FOR ABOUT 4 HRS. VS ARE STABLE AND SHE DENIES ANY NEEDS AT THIS TIME.
[2023-10-14 06:46] VITALS: BP_SYST 140
--- NOTE | 2023-10-14 06:47 | NUR ---
Shift report received from night RN. Pt sleeping supine w/ even & unlabored resps. HOB elevated to approx 30 degrees. No events reported overnight. Call light in reach. Fall precautions in place.
--- NOTE | 2023-10-14 10:24 | NUR ---
Pt up to shower w/ OT. All skin intact. Pt in hallway w/ PT to self-propel in w/c
--- NOTE | 2023-10-14 12:03 | NUR ---
Pt sitting up in bed eating lunch independently. Denies any needs at this time. Denies pain. Call light in reach. Bed alarm on.
--- NOTE | 2023-10-14 14:23 | NUR ---
scrap yard worker met with patient to check in and assess if she has any needs from TERESE. Pt requests an update. SW provided that they are still aiming for SNF placement, but she has not recieved an approval from a facility yet. SW advised she has been speaking with son, Florin and giving him updates too. Pt verbalized understanding. Pt went on to tell a story about how she left on Saturday and was at a bus stop, by a gas station, then trying to get to the police station and had no phone. SW inquired about the cell phone in the room. Pt reports no knowledge of this. SW informed pt it was her phone and attempted to re-orient her to being in the hospital for almost two weeks. Pt did not respond to this. She continued on to say she left, came back, and is unsure how she got back to the hosptial. Pt expressed no further needs to SW. TERESE spoke with [facility], [facility], and [facility] who report they are still reviewing patient. [facility] and [facility] requested the Medicaid application. TERESE worked with financial service rep Paola to obtain this. TERESE emailed to both parties requesting. Jenae requested three months of bank statements regarding patient's income to further assess Medicaid eligibilty. TERESE spoke with Gilda at [facility] who reports concerns regarding if patient's stay turned to LTC. They report to not have enough staff to transport patient to/from chemo/cancer appointments if they is pursued. SW provided they have recieved no plan from oncology regarding treatment for pt. [facility] reports they will continue to discuss. TERESE spoke with son, Florin and provided an update. TERESE informed him of needing bank statements and concerns regarding transportation to/from chemo appointments. Florin reports he will talk further with Iraida, but he believes she would be agreeable to taking patient to appointments if this is an issue. He informed SW they could even have a back up. He reports he will call SW once he can discuss this further. He will work on obtaining bank statements for SW to send. TERESE emailed DPOA-HC to Paola with financial advising for her processes. Discharge Plan: tbd, SNF
--- NOTE | 2023-10-14 15:18 | NUR ---
Pt sleeping supine in bed w/ even & unlabored resps. Call light in reach. Bed alarm on.
--- NOTE | 2023-10-14 16:19 | NUR ---
Pt awake & sitting up in bed. Denies pain/discomfort. Denies other needs. Call light in reach. Bed alarm on.
[2023-10-14 17:02] VITALS: BP 128/88; PULSE 84; TEMP 97.6
[2023-10-14 18:49] VITALS: BP_SYST 128
--- NOTE | 2023-10-14 19:25 | NUR ---
PT ALERT & CONFUSED. LAYING IN BED. DENYING THE NEED FOR PAIN MEDS AT THIS TIME. LEFT SCALP INCISION QUILL SKINNER & EDGES WELL APPROX. PT DENYING FURTHER NEEDS. FALL PRECAUTIONS IN PLACE & CALL LIGHT IN REACH
--- NOTE | 2023-10-14 21:00 | NUR ---
PT YELLING OUT FOR HELP & IS CONFUSED & CRYING. PT STATES SHE NEEDS TO GO HOME RIGHT NOW & THAT SHE IS HEARING VOICES. PT ALSO STATES HER RIGHT LEG IS IN PAIN, GIVEN PRN TYLENOL. PT REORIENTED & GIVEN PRN ZYPREXA. INCONTINENCE CARE PROVIDED & PT REPOSITIONED IN BED. PT STATES SHE IS GRATEFUL FOR THE HELP. FALL PRECAUTIONS IN PLACE & CALL LIGHT IN REACH. PT DENIYNG FURTHER NEEDS.
--- NOTE | 2023-10-14 23:23 | NUR ---
PT HAS CONTINUED TO YELL OUT FOR HELP. PT CONTINUES TO STATE THAT SHE NEEDS TO GO HOME & THAT THERE ARE PEOPLE IN THE ROOM TALKING TO HER - THIS NURSE HAS BEEN AT DESK OUTSIDE PTS ROOM & NO ONE HAS ENTERED ROOM. PT FREQUENTLY REORIENTED & CALMED DOWN. FALL PRECAUTIONS IN PLACE & CALL LIGHT IN REACH
--- NOTE | 2023-10-15 02:26 | NUR ---
pt resting in bed with unlabored resp. call light in reach & fall precautions in place
[2023-10-15 05:48] VITALS: BP 147/85; PULSE 85; TEMP 97.4
[2023-10-15 06:59] LABS: BASO % 0.4 % (0.0-2.0); EOS # 0.1 K/mm3 (0.0-0.7); EOS % 0.9 % (0.0-4.0); GRAN # 3.4 K/mm3 (1.4-6.5); GRAN % 59.7 % (42.2-75.2); LYMPH # 1.6 K/mm3 (1.2-3.4); LYMPH % 28.3 % (20.0-51.0); MEAN CELL VOLUME 103 fl (80.0-100.0); MEAN CORPUSCULAR HEMOGLOBIN 34 pg (27-31); MEAN CORPUSCULAR HGB CONC 33 g/dl (33.0-37.0); MEAN PLATELET VOLUME 12.4 fl (7.4-10.4); MONO # 0.6 K/mm3 (0.1-0.6); MONO % 10.3 % (1.7-9.3); PLATELET COUNT 131 K/mm3 (130-400); RED BLOOD COUNT 2.96 M/mm3 (4.10-5.30); REDCELL DISTRIBUTION WIDTH-CV 12.9 % (11.5-14.5)
[2023-10-15 07:00] VITALS: BP_SYST 147
[2023-10-15 07:03] LABS: HEMATOCRIT 30.4 % (37.0-47.0)
[2023-10-15 07:20] LABS: CALCIUM 11.6 mg/dL (8.4-10.2); CREATININE, serum 0.69 mg/dL (0.57-1.11); POTASSIUM 4.5 mmol/L (3.5-4.5)
--- NOTE | 2023-10-15 09:10 | NUR ---
PT SITTING UP IN BED EATING BREAKFAST. AFTER BREAKFAST PT WORKING WITH [facility]. AM MEDS GIVEN ORDERED. PT TOOK MEDS 1 AT A TIME SLOWLY QUESTIONING EACH PILL SHE WAS TAKING THEM AFTER REVIEWING.
--- NOTE | 2023-10-15 13:48 | NUR ---
soaking tank worker left a voicemail with son, Florin to discuss if he spoke to Iraida about transporting pt to/from cancer treatment appointments and obtaining 3 months of bank statements. TERESE spoke with Iraida and she was aware of the above information. She reports that she works until 4:30pm and transporting pt to/from appointments would be difficult for her work schedule. TERESE stated that she understood this. Iraida reports tomorrow she will obtain bank statements for [place]. She verbalized understanding and informed TERESE that Florin flew back to [place] today. TERESE emailed updates to [facility] and [facility]. [facility]ESE [facility] due to payor source/LTC needs. TERESE notes Jered is still discussing transportation concerns for pt since they do not have the staff to transport pt to/from appointments. [facility] reports they are still reviewing and need bank statements. TERESE was informed Elgin from [facility] wanted to meet in person with patient. Elgin arrived around 1pm and spoke with pt. He reports he will discuss with his team, but is concerned about payor source as Medicaid for them takes up to 90 days. Discharge Plan: SNF
--- NOTE | 2023-10-15 14:47 | NUR ---
Bottom Hoop Driver faxed additional referrals to [facility], and [place].
--- NOTE | 2023-10-15 15:42 | NUR ---
adult day care worker recieved a call from social karen Malave with Dr. Peralat's office regarding follow up cancer appointments. She reports she has been in communication with the son, Florin and knows pt is in IPR. She is inquiring about the discharge plan as pt missed an appointment today and this was when the was going to discuss treatment options with pt. TERESE provided she has no update on discharge. TERESE Malave inquired about if pt has two oncologists, TERESE reports she was unsure and gave the phone to IPR Director to discuss. Mayela took down her contact information.
[2023-10-15 17:13] VITALS: BP 107/73; PULSE 71; TEMP 98
--- NOTE | 2023-10-15 18:55 | NUR ---
PATIENT RESTING IN BED WITH TV ON ALERT AND CONFUSED WITH NO ACUTE DISTRESS NOTED. PATIENT ON ROOM AIR. WARM BLANKETS GIVEN PER PATIENT REQUEST. ASSESSMENT COMPLETED. PATIENT TOLERATED WELL. ALL NEEDS MET. BED IN LOW POSITION WITH WHEELS LOCKED WTIH RAILS UP X3 AND CALL LIGHT WITHIN REACH. BED ALARM ON.
[2023-10-15 19:00] VITALS: BP_SYST 107
--- NOTE | 2023-10-15 21:20 | NUR ---
PATIENT SITTING UP IN BED WITH TV ON WITH NO ACUTE DISTRESS NOTED. PATIENT ON ROOM AIR. MEDICATION ADMINISTRATION COMPLETED AT THIS TIME. PATEINT CONTINUES TO BE ALERT WITH CONFUSION. PATIENT TOLERATED MEDICATION WELL. PATIENT DENIES ANY NEEDS. BED IN LOW POSITION WITH WHEELS LOCKED WITH RAILS UP X3 AND CALL LIGHT WITHIN REACH. BED ALARM ON.
[2023-10-16 05:40] VITALS: BP 140/83; PULSE 83; TEMP 97.7
[2023-10-16 07:00] VITALS: BP_SYST 140
--- NOTE | 2023-10-16 08:30 | NUR ---
Pt. sitting up in bed. Pt. is A&OX3, this am with smoe forgetfulness. Pt. denies pain or other neeeds, call light within reach.
[2023-10-16] MEDS ORDERED: NS 1,000 ML IV SCH (11:45)
[2023-10-16 13:56] LABS: BASO % 0.3 % (0.0-2.0); EOS % 0.3 % (0.0-4.0); GRAN # 5.3 K/mm3 (1.4-6.5); GRAN % 73.6 % (42.2-75.2); HEMOGLOBIN 10.3 g/dl (12.5-16.0); LYMPH # 1.2 K/mm3 (1.2-3.4); LYMPH % 16.8 % (20.0-51.0); MEAN CELL VOLUME 102 fl (80.0-100.0); MEAN CORPUSCULAR HEMOGLOBIN 35 pg (27-31); MEAN CORPUSCULAR HGB CONC 34 g/dl (33.0-37.0); MEAN PLATELET VOLUME 12.2 fl (7.4-10.4); MONO # 0.6 K/mm3 (0.1-0.6); MONO % 8.7 % (1.7-9.3); PLATELET COUNT 126 K/mm3 (130-400); RED BLOOD COUNT 2.95 M/mm3 (4.10-5.30); REDCELL DISTRIBUTION WIDTH-CV 13.1 % (11.5-14.5)
[2023-10-16 13:57] LABS: HEMATOCRIT 30.2 % (37.0-47.0)
[2023-10-16 14:13] LABS: ALBUMIN 2.8 gm/dL (3.4-4.8); BILIRUBIN,TOTAL 0.7 mg/dL (0.2-1.2); CALCIUM 12.4 mg/dL (8.4-10.2); CREATININE, serum 0.73 mg/dL (0.57-1.11); POTASSIUM 4.7 mmol/L (3.5-4.5); TOTAL PROTEIN 6.7 gm/dL (6.2-8.1)
--- NOTE | 2023-10-16 16:19 | NUR ---
glass processing worker attended team conference regarding pt to discuss discharge plans. TERESE spoke with Eglin at [facility] in the morning who confirmed they could accept patient. TERESE informed the team of this who agreed on a discharge for tomorrow. Therapy noted a decline in function and treatment for patient. TERESE met with patient and provided team conference notes. Pt was informed of discharge to [facility] tomorrow and was agreeable to this. She appeared relieved to transfer to [facility]. SW completed a CARE Assessment for patient due to a potential for LTC. Pt verbalized understanding. Pt was unable to recall the words: pen,c car, watch. Pt said "no idea" when asked the day of the week. She reports the month as "November 15." Pt states the year is "." She said the president is "" then stated "Biden." She could not spell "Table" forward or backword. She did not correctly draw 11:10am on the clock draw. TERESE assisted pt will signing the RICK and she was informed what this was for. Pt signed RICK and certificate. TERESE informed SW she will provide her updates tomorrow on transportation time. TERESE informed son, Florin of the transfer to [facility] tomorrow. He was agreeable to this. He verified information SW needed to complete CARE Assessment. He reports patient has had falls in the last 6 months. He was aware of the decline in her decision-making. He had no further questions. TERESE emailed updates to Elgin at [facility]. Discharge Plan: [facility] tomorrow
[2023-10-16 16:45] VITALS: BP 121/84; PULSE 73; TEMP 98.1
[2023-10-16 19:00] VITALS: BP_SYST 121
--- NOTE | 2023-10-16 21:00 | NUR ---
PT SEEMS SAD AND DEPRESSED. PT IS CONFUSED. TRIES GRABBING IV TO LT F/A. NS INFUSING PER PUMP AT 125CC/HR. ZYPREXA 2.5MG GIVEN. DINNER TRAY STILL IN ROOM. PT DIDN'T EAT AT ALL. OFFERED OTHER CHOICES. PT NOT HUNGRY. PT RELATES SHE IS ACHEY. GAVE TYLENOL. PT IN SPECIALTY BED. SEIZURE PRECAUTIONS IN PLACE. CALL LIGHT IN REACH. BED ALARM SET.
--- NOTE | 2023-10-17 01:12 | NUR ---
INCONTINENT DARK MYRNA URINE. PT DENIES BURNING W/VOIDS. CLEANED UP ANSD CHANGED LINENS. PLACED NEW SACRAL DRSG-OLD AMARI WET. COCCYX REDDNED. HAS SOME SCRTCH BLOCK ON LT BUTTOCK. PLACED PUREWICK. CALL LIGHT IN REACH. BED ALARM SET.
--- NOTE | 2023-10-17 04:22 | NUR ---
URINE DARK MYRNA EARLIER W/ ODOR. ELDA PORTILLO [facility] SENT TO LAB AT THIS TIME.
[2023-10-17 04:36] LABS: COLLECTION METHOD CLEAN CATCH
[2023-10-17 04:51] LABS: PH 5.5 (5.0-8.5); URINE APPEARANCE CLEAR (CLEAR/HAZY); URINE BLOOD NEGATIVE (NEGATIVE); URINE COLOR YELLOW (YELLOW); URINE GLUCOSE NEGATIVE (NEGATIVE); URINE KETONE NEGATIVE (NEGATIVE); URINE NITRATE NEGATIVE (NEGATIVE); URINE PROTEIN(semi-quant) NEGATIVE (NEGATIVE)
[2023-10-17 05:50] VITALS: BP 151/77; PULSE 70; TEMP 97.6
[2023-10-17 07:48] VITALS: BP_SYST 151
--- NOTE | 2023-10-17 08:30 | NUR ---
Patient assisted to the commode, alert and orientedx 4, denies any pain at this time, exited to be discharged. Assessment completed, no further needs at this time. Call light within reach.
[2023-10-17] MEDS ORDERED: DECADRON 1MG TAB1 MG PO (09:20)
[2023-10-17] MEDS ORDERED: ROXICODONE 55 MG/TAB PO (09:30)
[2023-10-17 10:50] LABS: CALCIUM 11.3 mg/dL (8.4-10.2); CREATININE, serum 0.69 mg/dL (0.57-1.11); POTASSIUM 4.4 mmol/L (3.5-4.5)
--- NOTE | 2023-10-17 11:38 | NUR ---
IV fluids and IV access discontinued per orders.
--- NOTE | 2023-10-17 13:02 | NUR ---
bushel worker was informed patient can discharge today to [facility]. SW was informed Dr. Huston was waiting on labs to come back for pt. SW was informed patient was cleared to discharge. TERESE emailed discharge orders and CARE Assessment to [facility]. TERESE informed TERESE Plummer to upload CARE Assessment using upload tool. TERESE left a voicemail to sonFlorin regarding a discharge update. TERESE spoke with Iraida coleman and provided an update. She was agreeable to this. TERESE went over IM from Medicare over the phone. Iraida provided verbal consent and TERESE left a copy in patient's chart and discharge packet. She had no further questions. TERESE left a copy of CARE Assessment in patient's chart and discharge packet too. TERESE met with patient and informed her that TERESE called Iraida and Florin. TERESE spoke with Elgin at [facility] who confirmed a 1:30pm transport time. Discharge Plan: [facility] 1:30am
--- NOTE | 2023-10-17 14:00 | NUR ---
Pt was picked up by [facility] represtentative. Report given to HELIO Vizcarra.
--- NOTE | 2023-10-17 14:08 | NUR ---
Discharge QIM scores were reviewed by the team. Code of 4 chosen for oral hygiene was determined by team discussion to be the most usual performance for this patient during the discharge assessment period. Code of 3 chosen for lying to sitting was determined by team discussion to be the most usual performance for this patient during the discharge assessment period. Code of 2 chosen for sit to stand was determined by team discussion to be the most usual performance for this patient during the discharge assessment period. Code of 2 chosen for chair to bed was determined by team discussion to be the most usual performance for this patient during the discharge assessment period.--Mayela Payton, PD
[2023-10-22] MEDS ORDERED: ZYPREXA 5MG5 MG PO (19:31)
[2023-10-22] MEDS ORDERED: VENELEX OINTMENT5 G1 TP (23:54)
[2023-10-23] MEDS ORDERED: DULCOLAX TAB5 MG PO (00:25)
== END 2023-10-17 14:04 | DRG 92 ==
PROVIDERS: Hospitalist; ADMIT Physical Medicine & Rehabilitation Sports Medicine
DX: R47.01 Aphasia (principal); C85.90 Non-Hodgkin lymphoma, unspecified, unspecified site; R44.3 Hallucinations, unspecified; G93.40 Encephalopathy, unspecified; R13.10 Dysphagia, unspecified; R53.81 Other malaise; R26.89 Other abnormalities of gait and mobility; I10 Essential (primary) hypertension; G40.909 Epilepsy, unspecified, not intractable, without status epilepticus; B37.2 Candidiasis of skin and nail; F32.A Depression, unspecified; J44.9 Chronic obstructive pulmonary disease, unspecified; K59.00 Constipation, unspecified; D53.9 Nutritional anemia, unspecified; E83.52 Hypercalcemia; Z48.811 Encounter for surgical aftercare following surgery on the nervous system; Z74.09 Other reduced mobility; Z87.891 Personal history of nicotine dependence; M16.0 Bilateral primary osteoarthritis of hip; R35.0 Frequency of micturition; R05.9 Cough, unspecified
CPT/HCPCS: J7030; J8540